=== PATIENT | male | born 1985 | race Caucasian/White ===

== ENCOUNTER 2018-11-12 13:10 | Outpatient (CLI) | payer OTHER ==
--- NOTE | 2018-11-14 14:26 | MRI Report ---
Reason: PAIN IN LEFT FINGER Procedure Date: 11/12/2018 Accession Number: [id number] / [id number] Procedure: MRI - Finger(s) LT W/O CPT Code: 22384 FULL RESULT: EXAM: LEFT Thumb MRI Without Contrast EXAM DATE: 11/12/2018 02:52 PM. CLINICAL HISTORY: Left thumb pain. COMPARISON: None. TECHNIQUE: Multiplanar, multisequence T1-weighted and fluid-sensitive sequences of the thumb without contrast. Other: An external marker was placed in the area the patient stated pain.. FINDINGS: Bones: No fractures or subluxations. No marrow edema. No bone lesions. Cartilage: The articular cartilage is unremarkable. Ligaments: The radial and ulnar collateral ligaments are intact. Tendons: The flexor and extensor tendons are unremarkable. The adductor pollicis insertion is normal. Musculature: No edema or fatty atrophy. Other: No joint effusions or capsular rupture. The subcutaneous tissues are unremarkable. IMPRESSION: No MRI abnormalities in the thumb. [facility]
== END 2018-11-12 13:11 | disposition home or self-care (01) ==
LOC: DI 13:10
PROVIDERS: ATTEND Orthopaedic Surgery
DX: M79.645 Pain in left finger(s) (principal)

== ENCOUNTER 2018-12-14 09:52 | Outpatient (CLI) | payer OTHER ==
[2018-12-14 13:15] VITALS: BP 96/67
--- NOTE | 2018-12-14 13:15 | CONSULTATION NOTE ---
Information from patient questionnaire entered by Alannah Davis. I have reviewed and concur with the information entered by Alannah Davis. This document represents the service I personally performed and the decisions made by me, Efraín Hooper MD, [facility]. - History of Present Illness Chief Complaint: Unrefreshed sleep, Snoring, Frequent awakenings at night, Other (Mostly tired, waking up panicked) The patient tells me that he normally goes to bed around 9:30 - 11 pm, and it takes him approximately 10-30 minutes to fall asleep. He has been told that he snores loudly at night. He has not been observed to stop breathing in his sleep. His has to sleep in another room due to the loudness of his snoring. He can recall waking up on the average of 2-5 times during the night. Most of the time he wakes up because of snoring and panic. He has occasionally awakened for his own snoring. There is a lot of tossing and turning in his sleep. Generally there is no recollection of dreams. Usually he gets out of bed between 6 - 6:30 am not feeling refreshed. He usually does have a morning headache lasting 1 - 2 hours. During the day he complains of feeling sleepy and fatigued. He has never fallen asleep while driving nor has any accident due to sleepiness. He usually naps during the day about once a week. If he naps, upon falling asleep during the day he admits denies having dreams. He reports having impaired concentration during the day. He has never experienced sleep paralysis, cataplexy, or symptoms of restless leg syndrome. There is no somniloquy (sleep talking) but no somnambulism (sleep walking). [place] Sleepiness Scale Score: 13 - Social History The patient's occupation is an [employer]. Patient is and lives in [place]. Patient drinks alcohol on the average of 1 drinks a week, and drinks 2-3 cups of caffeinated beverages a week. Smoked in the past 12 months: Yes Packs per Day: 1 (less than 1) Years of smokin Smoking Pack Years: 6.0 - Family History Family history of sleep disordered breathing: Yes (snoring) Family Hx Sleep Apnea: Father: Snoring (not diagnosed) - Review of Systems Weight gain over past 5 years: 10 Cardiovascular: denies: high blood pressure, palpitations, chest pain, irregular heart rate or pulse, leg or foot swelling, have to sleep sitting up, other: Respiratory: denies: shortness of breath, wheeze, sputum production, chronic cough, other: Gastrointestinal: denies: heartburn, difficulty swallowing, nausea, vomitting, diarrhea, abdominal pain, other: Urinary: denies: incontinence, frequency, urgency, impotence, other: Neurological: reports: headaches. denies: seizure, head trauma, disorientation, speech dysfunction, gait or balance problems, fainting or unconsciousness, other: Psychiatric: denies: Attention Deficit Hyperactivity, anxiety, depression, mood disorder, claustrophobia, other: Ear/Nose/Throat: reports: wisdom teeth removed. denies: nasal congestion, sinus problems, nose bleeds, dry mouth/throat, hoarseness, injury to nose, tonsillectomy, other: Endocrine: denies: thyroid disease, history of goiter, sluggishness, too hot or cold, excessive thirst, increased appetite, increased urination, unexplained weakness, other: Musculoskeletal: denies: joint pain, neck pain, back pain, joint swelling, muscle pain or cramping, mobility problems, other: Immunologic: denies: sneezing, rash, itching, allergies to food or environment, other: - Physical Examination Vital signs obtained and documented by: Blood Pressure: 96/67 Cuff size: regular Heart Rate: 73 O2 Saturation: 100 Height: 5 ft 9.5 in Weight (kg): 66.406 kg Body Mass Index: 21.3 BMI Classification: Healthy weight HEENT: No craniofacial malformation Nostrils: patent to airflow Turbinates: normal Septum: midline Mouth and throat: normal Soft palate: normal Hard palate: normal Uvula: normal Tongue: enlarged in size with teeth tinsley on lateral edges Tonsils: small Chin and jaw: normal size and position Neck: normal w/o lymphadenopathy or thyromegaly Heart: regular rate and rhythm Lungs: clear bilaterally Abdomen: soft, non-tender Extremities: no edema or clubbing Neurologic: intact, no focal deficits - Impression 1. Suspected Obstructive Sleep Apnea-Hypopnea Syndrome, as suggested by a history of loud and irregular snoring, morning headache, frequent awakening during the night, unrefreshed sleep, cognitive impairment, and excessive daytime sleepiness. Narrow oropharynx is a common predisposing factor for obstructive sleep apnea-hypopnea syndrome. I recommend proceeding to polysomnography to confirm the diagnosis and to assess severity. If the patient has significant sleep disordered breathing, a manual CPAP titration study will also be performed to find the optimal treatment pressure. I informed the patient of what the sleep studies involve and after some discussion, obtained agreement to proceed. The pathophysiology of obstructive sleep apnea-hypopnea syndrome was discussed with the patient and health risks of cardiovascular and cerebrovascular disease if not treated. Risks of drowsy driving discussed in detail and patient advised to avoid long distance driving and to cloth covered helmet puller at the first sign of drowsiness. Patient agreed to plan. - Plan Schedule polysomnography and return in 1-2 weeks after the study to discuss result and initiate therapy as necessary. Avoid long distance driving or driving when feeling sleepy. Avoid alcohol, sedative and muscle relaxant around bedtime. Review instructions provided by trained office staff on how to prepare for the sleep study. Return for follow-up after sleep study completed. I spent 100% of this 20 minute visit face to face with the patient with greater than 50% of this was spent time counseling the patient and coordination of care.
== END 2018-12-14 09:53 | disposition home or self-care (01) ==
LOC: SC 09:52
PROVIDERS: ATTEND Internal Medicine Pulmonary Disease
DX: R06.83 Snoring (principal); G47.10 Hypersomnia, unspecified; R41.89 Other symptoms and signs involving cognitive functions and awareness; G47.8 Other sleep disorders; R51 Headache
CPT/HCPCS: 99203; 99212

== ENCOUNTER 2019-01-17 20:24 | Outpatient (CLI) | payer OTHER | END 2019-01-17 20:25 | disposition home or self-care (01) | LOC: SC 20:24 | PROVIDERS: ATTEND Internal Medicine Pulmonary Disease | DX: R06.83 Snoring (principal) | CPT/HCPCS: 95810 ==

== ENCOUNTER 2019-01-31 06:49 | Emergency (ER) | payer OTHER ==
[2019-01-31 07:02] VITALS: BP 121/79
[2019-01-31] MEDS ORDERED: DEXAMETHASONE 10 MG/ML VIAL PO STA (07:14)
[2019-01-31] MEDS ORDERED: CHERRY SYRUP 10 ML UDC PO ONE (07:14)
--- NOTE | 2019-01-31 07:15 | ED Physician Documentation ---
PD HPI HEENT - Stated complaint Stated Complaint: SORE THROAT - Chief complaint Chief Complaint: Heent - History obtained from History obtained from: Patient - History of Present Illness Timing - onset: How many days ago (2) Timing - duration: Days (2) Timing - details: Gradual onset, Still present Location: Throat Improves: Medication Worsens: Swalllowing Associated symptoms: Congestion. No: Fever, Cough Similar symptoms before: Has not had sx before Recently seen: Not recently seen - Additional information Additional information: Previously healthy 33-year-old male with history of arthritis is developed a sore throat over the past 2 days. He is having a lot of trouble swallowing and has had reduced oral intake. He does believe he is able to drink enough fluids. He has not had much in way of fever is not had a cough. Review of Systems Constitutional: denies: Fever Eyes: denies: Decreased vision Ears: denies: Ear pain Nose: reports: Congestion. denies: Rhinorrhea / runny nose Throat: reports: Sore throat Cardiac: denies: Chest pain / pressure, Palpitations Respiratory: denies: Dyspnea, Cough GI: denies: Vomiting PD PAST MEDICAL HISTORY - Past Medical History Past Medical History: No - Present Medications Home Medications: Ambulatory Orders Medication Instructions Recorded Confirmed Amox/Clav 875/125 [Augmentin] 1 each PO Q12H #20 tablet 01/31/19 - Allergies Allergies/Adverse Reactions: Allergies Allergy/AdvReac Type Severity Reaction Status Date / Time No Known Drug Allergies Allergy Verified 01/31/19 07:02 - Social History Does the pt smoke?: No Smoking Status: Never smoker PD ED PE NORMAL - Vitals Vital signs reviewed: Yes (tachy ) - General General: Alert and oriented X 3, No acute distress, Well developed/nourished - HEENT HEENT: Atraumatic, PERRL, EOMI, Ears normal, Moist mucous membranes, Other (The pharynx is with marked swelling to the uvula that extends 4X normal in length. ) - Neck Neck: Supple, no meningeal sign, No bony TTP - Cardiac Cardiac: No murmur, Other (tachy to 110) - Respiratory Respiratory: No respiratory distress, Clear bilaterally - Abdomen Abdomen: Soft, Non tender - Back Back: No CVA TTP, No spinal TTP - Derm Derm: Normal color, Warm and dry, No rash - Extremities Extremities: No deformity, No edema - Neuro Neuro: Alert and oriented X 3, time checker 2-12 intact, No motor deficit, No sensory deficit, Normal speech Eye Opening: Spontaneous Motor: Obeys Commands Verbal: Oriented GCS Score: 15 - Psych Psych: Normal mood, Normal affect Results - Vitals Vitals: Vital Signs - 24 hr 01/31/19 07:00 Temperature 37.0 C Heart Rate 107 H Respiratory 17 Rate Blood Pressure 121/79 O2 Saturation 99 Oxygen O2 Source Room air - Labs Labs: Laboratory Tests 01/31/19 06:56 Group A Strep Rapid Negative PD MEDICAL DECISION MAKING - ED course Complexity details: reviewed results, re-evaluated patient, considered differential, d/w patient ED course: 33-year-old male with a sore throat and marked swelling of the uvula is administered dexamethasone 10 mg orally and a rapid strep is obtained. Departure - Departure Disposition: 01 Home, Self Care Clinical Impression: Pharyngitis Qualifiers: Pharyngitis/tonsillitis etiology: unspecified etiology Qualified Code(s): J02.9 - Acute pharyngitis, unspecified Condition: Stable Instructions: ED Strep Pharyngitis Poss Follow-Up: Hemanth Patricio MD [Primary Care Provider] - Prescriptions: Amox/Clav 875/125 [Augmentin] 1 each PO Q12H #20 tablet Forms: Activity restrictions
== END 2019-01-31 07:32 | disposition home or self-care (01) ==
LOC: ED 06:49
DX: J02.9 Acute pharyngitis, unspecified (principal)
CPT/HCPCS: 87070; 87430; 99283; 99284; A9270

== ENCOUNTER 2019-01-31 13:01 | Outpatient (CLI) | payer OTHER | END 2019-01-31 13:02 | disposition home or self-care (01) | LOC: SC 13:01 | PROVIDERS: ATTEND Nurse Practitioner Family | DX: Z53.9 Procedure and treatment not carried out, unspecified reason (principal) ==

== ENCOUNTER 2019-03-22 14:07 | Outpatient (CLI) | payer OTHER ==
--- NOTE | 2019-03-22 14:31 | SLEEP CARE CONSULTATION ---
Information from patient questionnaire entered by Melita Bautista. I have reviewed and concur with the information entered by Melita Bautista. This document represents the service I personally performed and the decisions made by me, Efraín Hooper MD, [facility]. History of Present Illness Initial [place] Sleepiness Scale score: 13 Current [place] Sleepiness Scale score: 13 Additional HPI information: HPI: Mr. Baez returned for follow up of the sleep study he had on 01/17/2019. The polysomnography showed that the patient had normal sleep efficiency. The sleep architecture was abnormal for sleep fragmentation and reduced amount of time spent in slow wave sleep (N3). Respiratory monitoring showed no significant sleep disordered breathing (AHI = 1.9) or hypoxia (winnie oxygen saturation of 89 %). The respiratory events occurred mainly during supine sleep (supine AHI = 4.9; non-supine = 0.24). Snore was moderate in intensity. There was no significant periodic leg movement of sleep. Cardiac rhythm was normal sinus rhythm without significant arrhythmia. No abnormal behavior (parasomnia) observed during the night. The patient was informed of these findings. I explained to him that the sleep study was normal. Allergies and Home Medications Drug allergies reviewed: Yes Home medication list reviewed: Yes Review of Systems Review of systems same as previous: Yes Physical Exam Height: 5 ft 10 in Weight: 146 lb 8 oz Body Mass Index: 20.9 BMI Classification: Healthy weight Impression and Plan IMPRESSION: 1. Primary Snore (ICD-10 R06.83), moderate, but no significant sleep-disordered breathing. No other sleep disrupting conditions either. No treatment is recommended. PLAN: 1. Follow up with his primary care provider. 2. Return to the sleep clinic on as needed basis. I spent 100% of this 20 minute visit face to face with the patient with greater than 50% of this was spent time counseling the patient and coordination of care.
== END 2019-03-22 14:08 | disposition home or self-care (01) ==
LOC: SC 14:07
PROVIDERS: ATTEND Internal Medicine Pulmonary Disease
DX: R06.83 Snoring (principal)
CPT/HCPCS: 99212; 99213

== ENCOUNTER 2019-06-21 10:06 | Emergency (ER) | payer OTHER ==
[2019-06-21 10:18] VITALS: BP 114/69
--- NOTE | 2019-06-21 11:49 | ED Physician Documentation ---
History of Present Illness - Stated complaint Stated Complaint: FEVER/NAUSEA - Chief complaint Chief Complaint: Fever - History obtained from History obtained from: Patient (33-year-old gentleman became acutely sick this morning with fever, body aches, right nasal passages and nausea. No sick contacts or recent travel.) Review of Systems Constitutional: reports: Fever, Chills, Myalgias Nose: reports: Rhinorrhea / runny nose Throat: denies: Sore throat Respiratory: denies: Cough GI: reports: Nausea. denies: Vomiting, Diarrhea PD PAST MEDICAL HISTORY - Present Medications Home Medications: Ambulatory Orders Medication Instructions Recorded Confirmed Amox/Clav 875/125 [Augmentin] 1 each PO Q12H #20 tablet 01/31/19 Ibuprofen [Motrin] 800 mg PO Q8H PRN #30 tablet 06/21/19 Ondansetron Odt [Zofran] 4 mg TL Q6H PRN #10 tablet 06/21/19 - Allergies Allergies/Adverse Reactions: Allergies Allergy/AdvReac Type Severity Reaction Status Date / Time No Known Drug Allergies Allergy Verified 01/31/19 07:02 - Social History Does the pt smoke?: No Smoking Status: Never smoker PD ED PE NORMAL - Vitals Vital signs reviewed: Yes - General General: Alert and oriented X 3, No acute distress - HEENT HEENT: PERRL, EOMI, Ears normal, Pharynx benign - Neck Neck: Supple, no meningeal sign, No bony TTP - Cardiac Cardiac: RRR, No murmur - Respiratory Respiratory: No respiratory distress, Clear bilaterally - Abdomen Abdomen: Soft, Non tender - Back Back: No CVA TTP, No spinal TTP - Derm Derm: Normal color, Warm and dry - Neuro Neuro: Alert and oriented X 3, Normal speech Results - Vitals Vitals: Vital Signs - 24 hr 06/21/19 10:15 Temperature 37.2 C Heart Rate 87 Respiratory 18 Rate Blood Pressure 114/69 O2 Saturation 97 Oxygen O2 Source Room air - Labs Labs: Laboratory Tests 06/21/19 10:22 Influenza A (Rapid) Negative Influenza B (Rapid) Negative PD MEDICAL DECISION MAKING - ED course ED course: Well-appearing 33-year-old gentleman with flulike illness, could actually be flu given the low sensitivity of the flu swab during this outbreak, however he is young and healthy and I did not strongly advise antivirals. The patient and family were counseled as to the diagnosis and need for follow- up. I counseled the patient with regard to signs and symptoms that would necessitate an urgent reevaluation in the emergency department. They understand they are welcome to return at any time if worse or if not improving as expected. This document was made in part using voice recognition software. While efforts are made to proofread this documents, sound alike and grammatical errors may occur. Departure - Departure Disposition: 01 Home, Self Care Clinical Impression: Flu-like symptoms Condition: Good Record reviewed to determine appropriate education?: Yes Instructions: ED Viral Syndrome Prescriptions: Ibuprofen [Motrin] 800 mg PO Q8H PRN #30 tablet PRN Reason: PAIN &/OR FEVER Ondansetron Odt [Zofran] 4 mg TL Q6H PRN #10 tablet PRN Reason: Nausea / Vomiting Comments: Return anytime for new or worsening symptoms. Follow-up with your doctor or Thursday for recheck if not better. Forms: Activity restrictions
== END 2019-06-21 11:53 | disposition home or self-care (01) ==
LOC: ED 10:06
DX: J11.1 Influenza due to unidentified influenza virus with other respiratory manifestations (principal)
CPT/HCPCS: 87275; 87276; 99283

== ENCOUNTER 2020-09-14 08:20 | Outpatient (CLI) | payer OTHER ==
[2020-09-14 08:51] VITALS: BP 114/75
--- NOTE | 2020-09-14 08:51 | SLEEP CARE CONSULTATION ---
Information from patient questionnaire entered by Alannah Davis. I have reviewed and concur with the information entered by Alannah Davis. This document represents the service I personally performed and the decisions made by , Yolanda Templeton ARNP. History of Present Illness Service Date and Time: 09/14/2020 0820 AHI: 1.9 (in 2019) Reason for follow up: annual (last seen 03/2019, positional therapy) Prior sleep studies: Yes Year and Where: 2019 - [facility] Type of Sleep Study: Polysomnography (negative) HPI additional information: MICHAEL SARMIENTO, AHI 1.9, returned today for follow-up. He was referred by his new PCP for re-evaluation. He comes in with main complaints of snoring, unrefreshed sleep, excessive daytime sleepiness, frequent night awakenings with heart racing and fatigue. He does not wake up feeling rested. He has wakes up in a panic with his heart racing and sitting up straight in bed. He does not wake up choking or gasping for air. He has not had any observed pauses in breathing. He is sleepy during the day and does not sit too long as he could fall asleep easily. He has a past medical history of anxiety, depression and arthritis. Subjective Initial [place] Sleepiness Scale score: 13 (in 2019) Current [place] Sleepiness Scale score: 12 Allergies and Home Medications Drug allergies reviewed: Yes (NKDA) Home medication list reviewed: Yes Allergy and home medication list: Celexa Deep Review of Systems Cardiovascular: reports: other (wake up with heart racing). denies: high blood pressure, palpitations, chest pain, irregular heart rate or pulse Respiratory: denies: shortness of breath Gastrointestinal: denies: heartburn Neurological: reports: headaches (wakes up with daily headaches that last until about lunch) Psychiatric: reports: anxiety, depression. denies: Attention Deficit Hyperactivity, mood disorder, claustrophobia Ear/Nose/Throat: reports: dry mouth/throat (wakes up with bad dry mouth), wisdom teeth removed. denies: tonsillectomy Immunologic: reports: allergies to food or environment (dry eyes sometimes possible allergies) Physical Exam Blood Pressure: 114/75 Cuff size: wrist Heart Rate: 65 O2 Saturation: 99 Height: 5 ft 11 in Weight: 149 lb Body Mass Index: 20.7 BMI Classification: Healthy weight Impression and Plan 1. Suspected Obstructive Sleep Apnea-Hypopnea Syndrome, as suggested by a hist ory of loud and irregular snoring, morning headache, frequent awakening during the night, unrefreshed sleep, fatigue, cognitive impairment, and excessive daytime sleepiness. I recommend proceeding to polysomnography to confirm the diagnosis and to assess severity. If the patient has significant sleep disordered breathing, a manual CPAP titration study will also be performed to find the optimal treatment pressure. I informed the patient of what the sleep studies involve and after some discussion, obtained agreement to proceed. The pathophysiology of obstructive sleep apnea-hypopnea syndrome was discussed with the patient and health risks of cardiovascular and cerebrovascular disease if not treated. Risks of drowsy driving discussed in detail and patient advised to avoid long distance driving and to crop puller at the first sign of drowsiness. Patient agreed to plan. * Schedule polysomnography +- manual CPAP titration study and return in 1-2 weeks after the study to discuss result and initiate therapy. * Avoid long distance driving or driving when feeling sleepy. * Avoid alcohol, sedative and muscle relaxant around bedtime. * Maintain a health weight. * Review instructions provided by trained office staff on how to prepare for the sleep study. * Return for follow-up after sleep study completed. Counseling Topics: Weight control Visit Type: In Office Time Spent with Patient (minutes): 21 Provider Statement: I spent 100% of the Face to Face Visit with the patient with greater than 50% spent counseling the patient and coordination of care.
== END 2020-09-14 08:21 | disposition home or self-care (01) ==
LOC: SC 08:20
PROVIDERS: ATTEND Nurse Practitioner Family
DX: G47.10 Hypersomnia, unspecified (principal); R41.89 Other symptoms and signs involving cognitive functions and awareness; G47.8 Other sleep disorders; R06.83 Snoring; R51.9 Headache, unspecified; R53.83 Other fatigue
CPT/HCPCS: 99212; 99213

== ENCOUNTER 2020-10-04 14:56 | Outpatient (CLI) | payer OTHER | END 2020-10-04 14:57 | disposition home or self-care (01) | LOC: SC 14:56 | PROVIDERS: ATTEND Nurse Practitioner Family | DX: G47.33 Obstructive sleep apnea (adult) (pediatric) (principal) | CPT/HCPCS: 95806 ==

== ENCOUNTER 2020-10-12 16:20 | Outpatient (CLI) | payer OTHER ==
--- NOTE | 2020-10-12 16:56 | SLEEP CARE CONSULTATION ---
Information from patient questionnaire entered by Claire Saeed. I have reviewed and concur with the information entered by Claire Saeed. This document represents the service I personally performed and the decisions made by me, Yolanda Templeton ARNP. History of Present Illness Service Date and Time: 10/12/2020 1620 Initial [place] Sleepiness Scale score: 13 (in 2019) Current [place] Sleepiness Scale score: 11 Additional HPI information: MICHAEL SARMIENTO returns for follow up and results of the recently performed home sleep study. I explained the pathophysiology behind obstructive sleep apnea. We then spent quite a bit of time discussing different treatment options. For mild obstructive sleep apnea, surgery and oral appliance are alternatives to nasal CPAP therapy but in moderate or severe cases, nasal CPAP is the most effective and reliable treatment. Because apnea is primarily in supine position, then positional management therapy could be effective. Methods discussed such as positioning with pillows, using a T-shirt with tennis balls in the back, and shown commercial products that have a pillow format on back to prevent supine sleep. I reviewed the impact of weight changes on sleep apnea and strongly recommended losing weight. After some discussion, the patient opted to go with the nasal CPAP therapy. Nasal autoCPAP set at 4-15 cmH20 will be ordered with rationale explained. A manual titration study will be ordered if unable to find optimal pressure with office adjustments. I explained how CPAP machine works with sample devices Respironics Dreamstation and ResBizmore [id number] and what to expect when using the machine. Using CPAP every night in order to get used to it was emphasized. Patient advised to put CPAP mask on before getting into bed so as not to fall asleep without CPAP. To assist acclimation to CPAP use, it could also be used for a short time during day while reading or watching TV. The patient was instructed to call the CPAP supplier to discuss any mechanical problem that may occur. If the mask given is uncomfortable or is difficult to keep on through the night even with adjustment, contact the CPAP supplier as many will replace with another mask style if notified before 30 days. If snoring or perceives is not getting enough air or too much air from the machine, notify this office. [facility] patient education PAP tips reviewed and given to patient. Patient does not drink alcohol. Patient was cautioned about risks of drowsy driving until sleepiness symptoms resolve. Sleep Study - Results Type of Sleep Study: Home sleep study (negative) [facility]: [facility] results: Physician Impression: The quality of the study is good. The length of the study is adequate (> 240 minutes). Please also see the tabulated and graphic data. 1. Obstructive Sleep Apnea-Hypopnea (ICD-10 G47.33), mild, with an AHI of 7.0/hr and winnie SaO2 of 90%. During the study, the patient had 47 apneas (47 obstructive, 0 central, 0 mixed) and 11 hypopneas. The longest episode lasted 80.5 seconds. The respiratory events occurred almost exclusively during supine sleep (supine AHI was 7.3 and non-supine, 2.37). Allergies and Home Medications Home medication list reviewed: Yes (no changes) Review of Systems Review of systems same as previous: Yes (no changes) Physical Exam Heart Rate: 65 O2 Saturation: 97 Height: 5 ft 11 in Weight: 149 lb Body Mass Index: 20.7 BMI Classification: Healthy weight Impression and Plan 1. Obstructive Sleep Apnea-Hypopnea Syndrome, mild, with lowest oxygen saturation of 90%. Obviously this is the cause of the patients symptoms of unrefreshed sleep, and excessive daytime sleepiness. Positive pressure therapy could benefit anxiety and depression. As mentioned above, the patient will be started on nasal autoCPAP therapy with pressure set at 4-15 cmH2O. A manual titration study will be completed if unable to find optimal treatment pressure with office adjustments. Compliance guidelines also reviewed. A copy of compliance guidelines will be given for reference at check out. Because the apnea is more severe supine, I instructed to avoid sleeping supine using pillow positioning until able to start CPAP use. * Nasal auto CPAP therapy, pressure at 4-15 cm H2O. * Attempt to lose weight. * Avoid alcohol consumption near bedtime. * Avoid supine sleep until using CPAP. * The patient is again cautioned about driving until sleepiness completely resolves. * Return one month after CPAP obtained. I will assess response to therapy and compliance at that time. Counseling Topics: Weight control Visit Type: In Office Time Spent with Patient (minutes): 13 Provider Statement: I spent 100% of the Face to Face Visit with the patient with greater than 50% spent counseling the patient and coordination of care.
== END 2020-10-12 16:21 | disposition home or self-care (01) ==
LOC: SC 16:20
PROVIDERS: ATTEND Nurse Practitioner Family
DX: G47.33 Obstructive sleep apnea (adult) (pediatric) (principal)
CPT/HCPCS: 99212

== ENCOUNTER 2020-12-11 14:57 | Outpatient (CLI) | payer OTHER ==
--- NOTE | 2020-12-11 15:22 | SLEEP CARE CONSULTATION ---
Information from patient questionnaire entered by Alannah Davis. I have reviewed and concur with the information entered by Alannah Davis. This document represents the service I personally performed and the decisions made by me, Yolanda Templeton ARNP. History of Present Illness Service Date and Time: 12/11/2020 1457 Previous diagnosis: Mild, Obstructive Sleep Apnea-Hypopnea Syndrome AHI: 7.0 (in 2020)(1.9 in 2019) Reason for follow up: first compliance Equipment type: CPAP Equipment obtained from: Other ([facility]; getting supplies) Mask style: Nasal (over the nose) Mask brand: Respironics (Wisp) Backup mask available: No (will keep old mask when replaced) Last cushion change: 2 weekends ago Prior sleep studies: Yes Year and Where: 2020 and 2018(negative) - [facility] Type of Sleep Study: Home sleep study HPI additional information: MICHAEL SARMIENTO was diagnosed to have mild, AHI 7.0, obstructive sleep apnea-hypopnea syndrome and returned today for CPAP therapy first compliance follow-up. CPAP Compliance Data - Data Reviewed with Patient Average duration of nightly device use: 5 hours 17 minutes Compliance rate %: 66.7 (met compliance 11/09/20-12/08/20 - 73.3) Current pressure setting (cmH2O): 4-15 (median 7.2, avg 9.2, max 10.3) Humidity settin Heated hose settin Average residual AHI: 2.2 Average large leak: 9 sec Subjective Missed days of use due to: reports: mask issues (heat for last 2 days limited use) Patient concerns: reports: other (mask feels like it chaifes nose--causing sore on bridge of nose). denies: aerophagia, mask discomfort, air blowing in eyes, mask leak noise, condensation in mask/hose, nasal congestion, dry mouth, nose, throat, epistaxis Observed to snore while using device: No (not as much, states couple of mask) Current pressure setting perceived as: comfortable On therapy, patient: reports: sleeping better, awakening more refreshed, being more awake and alert during the day, more rested overall. denies: drowsiness while driving Initial [place] Sleepiness Scale score: 13 (in 2019) Current [place] Sleepiness Scale score: 6 Allergies and Home Medications Home medication list reviewed: Yes (no new meds) Review of Systems Review of systems same as previous: Yes (no changes) Physical Exam Heart Rate: 69 O2 Saturation: 98 Height: 5 ft 11 in Weight: 152 lb Body Mass Index: 21.2 BMI Classification: Healthy weight Impression and Plan 1. Obstructive Sleep Apnea-Hypopnea Syndrome, mild, with fair treatment compliance and good apnea control. On CPAP therapy, the patient has better sleep quality and is more rested overall. The patients pressure will be changed to autoCPAP 9-11 cmH20. Patient advised to contact me if pressure change is uncomfortable so that it can be adjusted. Goals for apnea control discussed. He has been getting some skin chafing, irritation at the bridge of his nose with the current over the nose style mask. I encouraged him to call and talk to the DME for options of changing to a different style of mask or one that might be a little bit bigger of current mask to reduce chafing on his nose. He voiced understanding and agreement with this plan of care. Patient's apnea severity and rationale for treatment to reduce apnea, improve sleep quality and reduce cardiovascular and cerebrovascular events was reviewed. I also reviewed the benefit of consistent device use of CPAP for depression/anxiety. * Change auto CPAP pressure to 9-11 cmH2O * Notify me if snoring with mask or feeling that the pressure is too much or too little * Maintain a healthy weight * Call this office if any problems using CPAP * Return for follow up in 1-2 months, or sooner if concerns arise Counseling Topics: Spare mask, Weight control Visit Type: In Office Time Spent with Patient (minutes): 15 Provider Statement: I spent 100% of the Face to Face Visit with the patient with greater than 50% spent counseling the patient and coordination of care.
== END 2020-12-11 14:58 | disposition home or self-care (01) ==
LOC: SC 14:57
PROVIDERS: ATTEND Nurse Practitioner Family
DX: G47.33 Obstructive sleep apnea (adult) (pediatric) (principal)
CPT/HCPCS: 99212

== ENCOUNTER 2021-01-29 14:44 | Outpatient (CLI) | payer OTHER ==
--- NOTE | 2021-01-29 15:25 | SLEEP CARE CONSULTATION ---
Information from patient questionnaire entered by Alannah Davis. I have reviewed and concur with the information entered by Alannah Davis. This document represents the service I personally performed and the decisions made by , Yolanda Templeton ARNP. History of Present Illness Service Date and Time: 01/29/2021 1444 Previous diagnosis: Mild, Obstructive Sleep Apnea-Hypopnea Syndrome AHI: 7.0 (in 2020) Reason for follow up: other (6 week with pressure change) Equipment type: CPAP Equipment obtained from: Other ([facility]; has not yet gotten more supplies) Mask style: Nasal Mask brand: Respironics (Dreamwear Wisp) Backup mask available: No (will keep old mask when replaced) Last cushion change: last week Prior sleep studies: Yes Year and Where: 2020 and 2018(HST -negative) - [facility] Type of Sleep Study: Home sleep study HPI additional information: MICHAEL SARMIENTO was diagnosed to have mild, AHI 7.0, obstructive sleep apnea-hypopnea syndrome and returned today for BIPAP therapy 6 week pressure change follow-up. CPAP Compliance Data - Data Reviewed with Patient Average duration of nightly device use: 5 hr 2 min Compliance rate %: 69 (42 days) Current pressure setting (cmH2O): 9-11 Humidity settin Heated hose settin Average residual AHI: 0.9 Average large leak: 18 sec Subjective Missed days of use due to: reports: mask issues (has woke with mask off face without recollection of taking off), travel Patient concerns: denies: aerophagia, mask discomfort, air blowing in eyes, mask leak noise, nasal congestion, dry mouth, nose, throat, epistaxis, other Observed to snore while using device: No Current pressure setting perceived as: comfortable On therapy, patient: reports: sleeping better, awakening more refreshed, being more awake and alert during the day, more rested overall. denies: drowsiness while driving Initial [place] Sleepiness Scale score: 13 (in 2019) Current [place] Sleepiness Scale score: 9 Allergies and Home Medications Home medication list reviewed: Yes (no changes) Review of Systems Review of systems same as previous: Yes (no changes) Physical Exam Heart Rate: 70 O2 Saturation: 97 Height: 5 ft 11 in Weight: 149 lb Body Mass Index: 20.7 BMI Classification: Healthy weight Impression and Plan 1. Obstructive Sleep Apnea-Hypopnea Syndrome, mild, with fair treatment compliance and good apnea control. On CPAP therapy, the patient has better sleep quality and is more rested overall. Patient has reached compliance at a previous visit. He has missed a few days due to travel and has found the mask off in the middle of night without remembering taking the mask off. He was advised to replace mask whenever he finds the mask off of his face. Patient is not having any difficulty with using his CPAP otherwise and is satisfied with treatment and current pressure setting. Patient states he will be moving to [place] in March. He was instructed to establish with a sleep provider there for his 6- month follow-up. Patient voiced understanding and agreement with plan. Patient's apnea severity and rationale for treatment to reduce apnea, improve sleep quality and reduce cardiovascular and cerebrovascular events was reviewed. I also reviewed the benefit of consistent device use of CPAP for depression/anxiety. Patient is at a healthy weight. * Continue auto CPAP pressure at 9-11 cmH2O * Notify me if snoring with mask or feeling that the pressure is too much or too little * Maintain a healthy weight * Call this office if any problems using CPAP * Return for follow up in 6 months, or sooner if concerns arise Counseling Topics: Spare mask, Weight control Visit Type: In Office Time Spent with Patient (minutes): 16 Provider Statement: I spent 100% of the Face to Face Visit with the patient with greater than 50% spent counseling the patient and coordination of care.
== END 2021-01-29 14:45 | disposition home or self-care (01) ==
LOC: SC 14:44
PROVIDERS: ATTEND Nurse Practitioner Family
DX: G47.33 Obstructive sleep apnea (adult) (pediatric) (principal)
CPT/HCPCS: 99212; 99213